=== PATIENT | female | born 1995 | race Caucasian/White ===

== ENCOUNTER 2019-03-11 02:24 | Emergency (ER) | payer SELFPAY ==
[~2019-03-11] VITALS: Ht 160 cm; Wt 74.8 kg
[2019-03-11] MEDS ORDERED: MELO15TA14 PO (03:43)
--- NOTE | 2019-03-11 03:43 | ED EENT ---
History of Present Illness General Chief Complaint: Trauma-Non Activation Stated Complaint: RT SIDE EYE INJURY Nursing Triage Note: Moderate amount of swelling and bruising to rt eye. Source: patient History of Present Illness Date Seen by Provider: Mar 11, 2019 Location Injury Occurred: [place] [employer] PCP:NONE--[facility] IN [facility], BUT DOES NOT HAVE A DR. THERE OR ANYWHERE Allergies and Home Medications Allergies Coded Allergies: No Known Drug Allergies (Unverified , 03/11/19) Home Medications Meloxicam 15 Mg Tablet, 15 MG PO DAILY Prescribed by: DORIE WOODRUFF on 03/11/19 0343 Past Bzzsecw-Onjkzk-Pxvbzz Hx Patient Social History Recent Foreign Travel: No Contact w/Someone Who Travel: No Recent Infectious Disease Expo: No Physical Exam Vital Signs Vital Signs - First Documented 03/11/19 02:30 Temp 96.2 Pulse 99 Resp 17 B/P (MAP) 130/83 (99) Pulse Ox 96 O2 Delivery Room Air Height, Weight, BMI Height: 5'3.00" Weight: 165lbs. oz. 74.009035gj; BMI Method:Stated Progress/Results/Core Measures Results/Orders My Orders Orders - DORIE WOODRUFF DO Urine Bedside (03/11/19 02:34) Ct Head/Maxillofacial Wo (03/11/19 02:34) Dipht,Pertuss(Acell),Tet Adult (Boostrix (03/11/19 03:45) Ketorolac Injection (Toradol Injection) (03/11/19 03:45) Lidocaine 2% Viscous 15 Ml (Xylocaine Vi (03/11/19 03:45) Wound Dressing-Ed (03/11/19 03:37) Medications Given in ED Current Medications Medications Dose Ordered Sig/Ev Route Start Time Stop Time Status Last Admin Dose Admin Lidocaine HCl 5 ml ONCE ONCE MM 03/11/19 03:45 03/11/19 03:46 03/11/19 03:43 5 ML Vital Signs/I&O 03/11/19 02:30 Temp 96.2 Pulse 99 Resp 17 B/P (MAP) 130/83 (99) Pulse Ox 96 O2 Delivery Room Air Blood Pressure Mean: [address] HEAD/MAXILLOFACIALS--RIGHT INFRAORBITAL RIDGE HEMATOMA, NO INTRACRANIAL INJURY OR FACIAL FRACTURE OR OTHER ORBITAL ACUTE INJURY--PER [facility] VIA FAX @ [id number]/[id number] Reviewed: Reviewed by Me Departure Impression Primary Impression: Periorbital contusion of right eye Additional Impressions: Abrasions of multiple sites Zzbylyceqh-ztzxfnhoz-ynmfbis (DPT) vaccination administered at current visit Disposition: HOME, SELF-CARE Condition: Stable Departure-Patient Inst. Referrals: NO,LOCAL PHYSICIAN (PCP/Family) Primary Care Physician Patient Instructions: Eye Contusion (DC), Skin Abrasions (DC) Add. Discharge Instructions: LOTS OF CLEAR LIQUIDS--NO ALCOHOL!!! CLEAN WOUNDS TWICE A DAY WITH ANTIBACTERIAL SOAP AND WATER, APPLY ANTIBIOTIC OINTMENT AND FRESH DRESSING ICE TO SORE AREAS AT 20 MINUTE INTERVALS FOLLOW UP WITH YOUR DR IN 1 WEEK IF NO BETTER All discharge instructions reviewed with patient and/or family. Voiced understanding. Scripts Meloxicam (Mobic) 15 Mg Tablet 15 MG PO DAILY, #10 TAB Prov: DORIE WOODRUFF DO 03/11/19 DORIE WOODRUFF DO Mar 11, 2019 03:43
[2019-03-11] MEDS ORDERED: TETANUS,DIPTH,PERTUSS P/F (BOOSTRIX) 0.5 ML VIAL IM ONE (03:45)
[2019-03-11] MEDS ORDERED: KETOROLAC 60 MG/2 ML VIAL IM ONE (03:45)
[2019-03-11] MEDS ORDERED: LIDOCAINE 2% VISCOUS 15 ML UDC MM ONE (03:45)
[2019-03-11 04:00] VITALS: BP 118/64
--- NOTE | 2019-03-11 06:53 | Diagnostic Imaging Report ---
PROCEDURE: CT head and maxillofacial without contrast. TECHNIQUE: Multiple contiguous axial images were obtained through the head and facial bones without the use of intravenous contrast. Auto Exposure Controls were utilized during the CT exam to meet ALARA standards for radiation dose reduction. DATE: March 11, 2019. COMPARISON: None. INDICATION: 23-year-old female, hit in the right eye by a softball. Swelling. FINDINGS: There is right periorbital soft tissue swelling and high attenuation compatible with soft tissue contusion and hematoma. The globes appear intact. There is no retro-orbital hematoma. There is no identified radiopaque foreign body. The temporomandibular joints are normally aligned bilaterally. The mandible is intact. There is no identified maxillofacial bone fracture. There is deviation of the bony nasal septum to the right of midline. There is no identified displaced nasal bone fracture. The visualized portions of the paranasal sinuses, mastoid air cells, and middle ears are well aerated. There is no identified skull fracture. The ventricles are normal in size and configuration for patient age. There is no abnormal extra-axial fluid collection. There is no evidence of acute intracranial hemorrhage. There is no mass effect or midline shift. IMPRESSION: 1. Prominent right preorbital subcutaneous edema and high attenuation compatible with soft tissue contusion and hematoma. 2. Grossly intact globes. No retro-orbital hematoma. 3. No identified acute maxillofacial bone fracture. 4. No identified acute intracranial abnormality. Dictated by: Dictated on workstation # [id number]
== END 2019-03-11 04:00 | disposition home or self-care (01) ==
LOC: ER 02:29
DX: S00.11XA Contusion of right eyelid and periocular area, initial encounter (principal); Z23 Encounter for immunization; X58.XXXA Exposure to other specified factors, initial encounter; Y93.64 Activity, baseball; Y92.320 Baseball field as the place of occurrence of the external cause
CPT/HCPCS: 70450; 70486; 84703; 90715